=== PATIENT | female | born 1960 | race Asian ===

== ENCOUNTER 2020-11-08 08:20 | Day surgery (SDC) | payer MEDICAID, SELFPAY ==
[~2020-11-08] VITALS: Ht 182.9 cm; Wt 90.7 kg
[2020-11-08] MEDS ORDERED: SIMETHICONE 40 MG/0.6 ML ML ONE (08:40)
[2020-11-08] MEDS: MIDAZOLAM HCL 5 MG/5 ML VIAL ONE ×4 (09:29→09:39)
[2020-11-08] MEDS: fentaNYL CITRATE/PF 100 MCG/2 ML AMP ONE ×4 (09:29→09:39)
[2020-11-08 11:05] VITALS: BP_SYST 127
== END 2020-11-08 10:50 | disposition home or self-care (01) ==
LOC: SDS 08:20 → SMU 08:26 → SDS 10:50
PROVIDERS: ATTEND Internal Medicine
DX: Z12.11 Encounter for screening for malignant neoplasm of colon (principal); D12.2 Benign neoplasm of ascending colon; K64.8 Other hemorrhoids; B18.1 Chronic viral hepatitis B without delta-agent; R03.0 Elevated blood-pressure reading, without diagnosis of hypertension; D64.9 Anemia, unspecified; Z20.822 Contact with and (suspected) exposure to COVID-19; Z79.899 Other long term (current) drug therapy
CPT/HCPCS: 45385; 88305; 99152; G0378; J2250; J3010; U0003